=== PATIENT | male | born 1960 | race Caucasian/White ===

== ENCOUNTER → 2024-05-26 07:28 | Outpatient (REF) | payer MEDICARE, OTHER, SELFPAY | LOC: HWRAD 07:28 | PROVIDERS: ATTENDING PHYSICIAN Internal Medicine | DX: R11.0 Nausea (principal); R74.8 Abnormal levels of other serum enzymes | CPT/HCPCS: 76700 ==

== ENCOUNTER → 2024-05-28 06:17 | Day surgery (SDC) | payer MEDICARE, OTHER, SELFPAY | LOC: GI 06:17 | PROVIDERS: ATTENDING PHYSICIAN Internal Medicine Gastroenterology | DX: K22.70 Barrett's esophagus without dysplasia (principal); K22.89 Other specified disease of esophagus; R11.2 Nausea with vomiting, unspecified | CPT/HCPCS: 43239; 88305; 88342 ==

== ENCOUNTER → 2024-06-17 07:49 | Outpatient (REF) | payer MEDICARE, OTHER, SELFPAY | LOC: RAD 07:49 | PROVIDERS: ATTENDING PHYSICIAN Internal Medicine Gastroenterology; FAMILY PHYSICIAN Internal Medicine | DX: R11.14 Bilious vomiting (principal) | CPT/HCPCS: 78264; A9541 ==

== ENCOUNTER 2025-05-03 10:50 | Emergency (ER) | payer MEDICARE, OTHER, SELFPAY ==
[2025-05-03 11:13] VITALS: BP 139/71
--- NOTE | 2025-05-03 13:29 | ED.GENMED ---
History of Present Illness
General
Chief Complaint: Musculo-Skeletal Complaint
Time Seen by Provider: 05/03/25 12:33
History of Present Illness
History of Present Illness:
65-year-old male presenting with left toe pain after hitting his foot on a table yesterday. Denies numbness or tingling. Reports persistent pain. Denies fever. Denies additional injuries. Denies additional acute medical complaints
Past History
Past History
ED Past Medical History: Asthma, Cancer (Prostate cancer), HTN, Hypercholesterolemia, Psychiatric and Other (Chronic sinusitis, allergic rhinitis); Negative CAD or CHF
ED Past Surgical History: Cholecystectomy, Orthopedic (Lumbar laminectomy in 2017, left knee arthroscopy 2014, left Achilles tendon repair October 2006) and Urological (Prostatectomy 2012)
Social History
Tobacco: Non-smoker
Alcohol: None
Personal:
Living: with family
Employment: Employed
Family History
Family History: Other (Noncontributory)
Phy Exam
Physical Exam
Physical Exam:
General: Well-appearing, no clinical signs of dehydration, nontoxic and in no acute distress
HEENT: protecting airway
Neck: appears supple
CV: Normal heart rate
Resp: No accessory muscle use, no increased work of breathing
Abd: no distension
Extremities: No deformities, mild swelling to the left fifth toe at the DIP. Motion grossly intact. General tenderness to palpation. Distal sensation and pulses intact
Neuro: alert, no focal neurologic deficit
: deferred
Rectal: deferred
Psych: Normal affect
Skin: Intact
Course
Orders/Labs/Results
Orders:
Orders
05/03/25 12:29
Foot, Left 3 View [CR Foot - Left Min 3 Views] Urgent
Comment:
Reason For Exam: stubbed toes and foot
Vital Signs
Initial and Last Documented VS:
Initial Vital Signs
Temp Pulse Resp BP Pulse Ox
98.4 F 81 18 139/71 96
05/03/25 11:13 05/03/25 11:13 05/03/25 11:13 05/03/25 11:13 05/03/25 11:13
Last Documented Vital Signs
Temp Pulse Resp BP Pulse Ox
98.4 F 81 18 139/71 96
05/03/25 11:13 05/03/25 11:13 05/03/25 11:13 05/03/25 11:13 05/03/25 13:34
MDM/Problems Addressed
MDM/Problems Addressed:
65-year-old male presenting for left fifth toe pain. Vital signs are normal.
On exam patient is resting comfortably, no acute distress. Benign examination of the foot with mild swelling to the left fifth toe at the DIP. Range of motion is grossly intact. No neurovascular compromise. No infectious findings. Suspect soft
tissue contusion. X-ray, no fracture. Pain placed in a boot, as his preference. Declined hard soled shoe. Plan for discharge with outpatient supportive therapy
*Pulse Oximetry
SaO2: 96
Oxygen Mode of Delivery: Room air
Patient hypoxic: no
*Critical Care Note
Total Time (30-74mins, 75-104mins- exclusive of procedures): Not Applicable
ED Attending Note
-
Portions of this chart may have been created with voice recognition software.� Occasional wrong word or��sound alike� substitutions may have occurred due to the inherent limitations of voice recognition software.
Discharge Plan
Departure
Patient Disposition: Home (Routine Discharge)
Date of Disposition: 05/03/25
Time of Disposition: 13:30
Patient with high blood pressure during this ER visit?: No
Condition: Good
Discharge Problem:
Left foot soft tissue tumor, Sprain of toe, fifth, left
Instructions: Foot sprain - ED discharge instructions
Prescriptions:
No Action
cetirizine 10 MG tablet
10 mg PO DAILY
zolpidem [Ambien CR] 12.5 MG tablet,ext release multiphase
12.5 mg PO HS
lisinopril 10 MG tablet
10 mg PO DAILY
Afrin Nasal [place]:
1 spray inhalation PRN PRN (Reason: nasal congestion)
multivitamin 1 EACH tablet
1 ea PO DAILY
vitamin B complex 1 TAB tablet
1 tab PO DAILY
mirtazapine 15 MG tablet
15 mg PO HS
albuterol sulfate [Ventolin HFA] 90 MCG/PUFF HFA aerosol inhaler
1 puff inhalation PRN PRN (Reason: wheezing)
fluticasone propionate 1 SPRAY spray,suspension
2 spray intranasal BID
cholecalciferol (vitamin D3) [Vitamin D3] 1,000 UNIT capsule
1,000 unit PO DAILY
tadalafil [Cialis] 10 MG tablet
10 mg PO DAILY
calcium carbonate-mag hydroxid [Antacid (calcium carb-mag hyd)] 1 EACH tablet,chewable
1 ea PO DAILY
Synvisc
1 dose INJ .[id number]
Patient Comments:
n0agepys, weekly x3
last dose planned 02/27/18
Testerol Gel-Slow Release
1 dose intradermal .Q4 MONTHS
hydrocodone-acetaminophen [[place]] 1 EACH tablet
1 ea PO Q6HPRN PRN (Reason: pain) Qty: 30 0RF
Rx Instructions:
Take 1 tablet four times a day, every 6 hours for pain
lorazepam 1 MG tablet
1 mg PO TIDPRN PRN (Reason: pain/spasms) Qty: 40 0RF
prednisone 10 MG tablet
10 mg PO .TAPER Qty: 45 0RF
Rx Instructions:
Take 50mg daily x3days, 40mg daily x3days,
30mg daily x3days, 20mg daily x3days,
10mg daily x3days
Eliquis 5 mg tablet
5 mg PO BID Qty: 70 0RF
Rx Instructions:
Take 10mg PO BID x 7 days. Take 5mg PO for 21 days
Referrals:
Mazin Carbajal MD [Non-Admitting Privileges, Orthopedics]
Fausto Velasco MD [Family Provider, Internal Medicine]
Activity Restrictions/Additional Instructions:
You were seen in the emergency department for left fifth toe pain
You were found to have an x-ray without fracture. We suspect a soft tissue contusion.
Please follow-up closely with your primary care physician.
Return to the emergency department for any worsening of your symptoms, or any development of chest pain, difficulty breathing, abdominal pain with persistent vomiting and inability to tolerate food or liquid by mouth (concern for dehydration),
weakness, headache or confusion, fever greater than 100.4, or any additional symptoms that are concerning to you.
Thank you for choosing [facility].
Interventions
Interventions:
*Risk Screen - Suicide Last Done: 05/03/25 11:13
*General Assessment Last Done: 05/03/25 11:13
*Neglect/Abuse Screening Last Done: 05/03/25 11:13
ED-Musculoskeletal Assessment Last Done: 05/03/25 11:25
Discharge Date and Time
Print Language: COMORAN
== END 2025-05-03 13:52 | disposition home or self-care (01) ==
LOC: EMR 10:50
PROVIDERS: EMERGENCY PHYSICIAN Student in an Organized Health Care Education/Training Program; FAMILY PHYSICIAN Internal Medicine
DX: D21.22 Benign neoplasm of connective and other soft tissue of left lower limb, including hip (principal); S93.505A Unspecified sprain of left lesser toe(s), initial encounter; W22.03XA Walked into furniture, initial encounter; J45.909 Unspecified asthma, uncomplicated; I10 Essential (primary) hypertension; E78.00 Pure hypercholesterolemia, unspecified; Z90.49 Acquired absence of other specified parts of digestive tract; Z90.79 Acquired absence of other genital organ(s)
CPT/HCPCS: 99283; 73630